=== PATIENT | female | born 1980 | race Hispanic/Latino ===

== ENCOUNTER 2017-08-28 18:53 | Emergency (ER) | payer SELFPAY ==
[2017-08-28] MEDS ORDERED: HYDROcodone/Acetaminophen 10/325 mg Tablet ONE (19:54)
[2017-08-28] MEDS ORDERED: Lidocaine 1% PF 5 ML VIAL ONE (20:25)
[2017-08-28] MEDS ORDERED: Lidocaine 2% w/Epinephrine 1:200K 20 ML VIAL NERVE BLCK SCH (20:45)
== END 2017-08-28 21:38 | disposition home or self-care (01) ==
LOC: ERS 18:53
DX: L05.01 Pilonidal cyst with abscess (principal); I10 Essential (primary) hypertension; F17.210 Nicotine dependence, cigarettes, uncomplicated
CPT/HCPCS: 10080; J2001

== ENCOUNTER 2020-06-06 00:26 | Emergency (ER) | payer SELFPAY ==
[2020-06-06] MEDS ORDERED: HYDROcodone/Acetaminophen 5/325 mg Tablet ONE (01:09)
--- NOTE | 2020-06-06 08:33 | RAD ---
RIGHT KNEE 4 VIEWS: INDICATION: History of right knee pain. COMPARISON: None IMPRESSION: Moderate joint capsular distention without definite evidence of an acute fracture. There is mild ost eoarthrosis of the right knee predominantly affecting the mediofemoral tibial and patellofemoral comp artments. Soft tissues appear within normal limits. POS: BH
== END 2020-06-06 02:17 | disposition home or self-care (01) ==
LOC: ERS 00:26
DX: S83.91XA Sprain of unspecified site of right knee, initial encounter (principal); I10 Essential (primary) hypertension; F17.210 Nicotine dependence, cigarettes, uncomplicated; X50.1XXA Overexertion from prolonged static or awkward postures, initial encounter